=== PATIENT | male | born 1960 | race Caucasian/White ===

== ENCOUNTER → 2016-10-23 | Outpatient (CLI) | payer MEDICARE, OTHER ==
[~2016-10-23] MED LIST: ANASTROZOLE1 MG PO; ASPIRIN EC81 MG PO; CATAPRES 0.1MG0.1 MG PO; CHLORTHALIDONE25 MG PO; DULOXETINE HCL60 MG PO; GREEN TEA250 MG PO; INVOKANA300 MG PO; ISORDIL TAB 3030 MG PO; LANTUS100 UNIT/1 SC; LASIX20 MG PO; LEVOTHYROXINE100 MCG PO; LIPITOR TAB 2020 MG PO; LISINOPRIL10 MG PO; METOPROLOL SUC100 MG PO; NORVASC 5 MG TAB5 MG PO; NOVOLOG100 UNIT/1 SC; PIOGLITAZONE HC30 MG PO; PLAVIX 75 MG TA75 MG PO; PRADAXA150 MG PO; PRIMIDONE50 MG PO; RANITIDINE HCL150 M1 PO; SPIRONOLACTONE25 MG PO; TRANDATE 200 M200 MG PO; VITAMIN D50000 UNIT PO; ZYLOPRIM 100 M100 MG PO
[2016-10-23 13:06] LABS: HEMOGLOBIN 15.5 gm/dl (14.0-17.5); RED BLOOD COUNT 5.49 M/UL (4.20-5.50); WHITE BLOOD COUNT 7.4 K/UL (4.5-11.0)
[2016-10-23 13:32] LABS: BUN/CREATININE RATIO 10 (0-10)
== END ==
LOC: LAB 12:09
PROVIDERS: Internal Medicine Cardiovascular Disease
DX: Z01.810 Encounter for preprocedural cardiovascular examination (principal); I10 Essential (primary) hypertension; I48.91 Unspecified atrial fibrillation; R94.31 Abnormal electrocardiogram [ECG] [EKG]; Z88.8 Allergy status to other drugs, medicaments and biological substances
CPT/HCPCS: 36415; 80048; 85025; 85610; 85730; 93005

== ENCOUNTER 2016-10-24 06:12 | Outpatient (CLI) | payer MEDICARE, OTHER ==
[~2016-10-24] VITALS: Ht 175.3 cm; Wt 117.0 kg
[2016-10-24] MEDS ORDERED: ZYLOPRIM 100 M100 MG PO (07:44)
[2016-10-24] MEDS ORDERED: NORVASC 5 MG TAB5 MG PO (07:44)
[2016-10-24] MEDS ORDERED: ANASTROZOLE1 MG PO (07:46)
[2016-10-24] MEDS ORDERED: CHLORTHALIDONE25 MG PO (07:46)
[2016-10-24] MEDS ORDERED: LIPITOR TAB 2020 MG PO (07:46)
[2016-10-24] MEDS ORDERED: CATAPRES 0.1MG0.1 MG PO (07:47)
[2016-10-24] MEDS ORDERED: GREEN TEA250 MG PO (07:48)
[2016-10-24] MEDS ORDERED: DULOXETINE HCL60 MG PO (07:48)
[2016-10-24] MEDS ORDERED: INVOKANA300 MG PO (07:49)
[2016-10-24] MEDS ORDERED: ISORDIL TAB 3030 MG PO (07:49)
[2016-10-24] MEDS ORDERED: LEVOTHYROXINE100 MCG PO (07:50)
[2016-10-24] MEDS ORDERED: LANTUS100 UNIT/1 SC (07:50)
[2016-10-24] MEDS ORDERED: LISINOPRIL10 MG PO (07:51)
[2016-10-24] MEDS ORDERED: NOVOLOG100 UNIT/1 SC (07:52)
[2016-10-24] MEDS ORDERED: METOPROLOL SUC100 MG PO (07:52)
[2016-10-24] MEDS ORDERED: PIOGLITAZONE HC30 MG PO (07:53)
[2016-10-24] MEDS ORDERED: PRIMIDONE50 MG PO (07:54)
[2016-10-24] MEDS ORDERED: PRADAXA150 MG PO (07:54)
[2016-10-24] MEDS ORDERED: VITAMIN D50000 UNIT PO (07:55)
[2016-10-24] MEDS ORDERED: SPIRONOLACTONE25 MG PO (07:55)
[2016-10-24] MEDS ORDERED: RANITIDINE HCL150 M1 PO (07:55)
[2016-10-24 21:05] LABS: HEMOGLOBIN 15.9 gm/dl (14.0-17.5); RED BLOOD COUNT 5.6 M/UL (4.20-5.50); WHITE BLOOD COUNT 8.9 K/UL (4.5-11.0)
[2016-10-24 21:24] LABS: BUN/CREATININE RATIO 11 (0-10)
[2016-10-25 05:51] LABS: HEMOGLOBIN 15.7 gm/dl (14.0-17.5); RED BLOOD COUNT 5.55 M/UL (4.20-5.50); WHITE BLOOD COUNT 8.4 K/UL (4.5-11.0)
[2016-10-25 06:22] LABS: BUN/CREATININE RATIO 13 (0-10)
[2016-10-25] MEDS ORDERED: ASPIRIN EC81 MG PO (09:32)
[2016-10-25] MEDS ORDERED: PLAVIX 75 MG TA75 MG PO (09:34)
[2016-10-25] MEDS ORDERED: TRANDATE 200 M200 MG PO (10:20)
[2016-10-25] MEDS ORDERED: LASIX20 MG PO (10:21)
== END 2016-10-25 12:09 | disposition home or self-care (01) ==
LOC: CATH 06:12 → PROG CARE 13:20 → CATH 10-25 12:09
PROVIDERS: Internal Medicine
DX: I25.118 Atherosclerotic heart disease of native coronary artery with other forms of angina pectoris (principal); R94.39 Abnormal result of other cardiovascular function study; R94.31 Abnormal electrocardiogram [ECG] [EKG]; R07.9 Chest pain, unspecified; I13.0 Hypertensive heart and chronic kidney disease with heart failure and stage 1 through stage 4 chronic kidney disease, or unspecified chronic kidney disease; I50.32 Chronic diastolic (congestive) heart failure; N18.2 Chronic kidney disease, stage 2 (mild); E11.22 Type 2 diabetes mellitus with diabetic chronic kidney disease; E11.65 Type 2 diabetes mellitus with hyperglycemia; E78.5 Hyperlipidemia, unspecified; I73.9 Peripheral vascular disease, unspecified; E11.51 Type 2 diabetes mellitus with diabetic peripheral angiopathy without gangrene; E11.41 Type 2 diabetes mellitus with diabetic mononeuropathy; I25.2 Old myocardial infarction; E55.9 Vitamin D deficiency, unspecified; Z79.4 Long term (current) use of insulin; Z79.899 Other long term (current) drug therapy; Z86.718 Personal history of other venous thrombosis and embolism; Z79.02 Long term (current) use of antithrombotics/antiplatelets; Z88.8 Allergy status to other drugs, medicaments and biological substances; E29.1 Testicular hypofunction; E87.6 Hypokalemia; E03.9 Hypothyroidism, unspecified; M54.5 Low back pain; E78.2 Mixed hyperlipidemia; B35.3 Tinea pedis; R25.1 Tremor, unspecified; Z79.82 Long term (current) use of aspirin; M51.34 Other intervertebral disc degeneration, thoracic region; M51.36 Other intervertebral disc degeneration, lumbar region; E88.81 Metabolic syndrome and other insulin resistance; H68.109 Unspecified obstruction of Eustachian tube, unspecified ear; Z86.2 Personal history of diseases of the blood and blood-forming organs and certain disorders involving the immune mechanism; K58.9 Irritable bowel syndrome, unspecified; E66.9 Obesity, unspecified; Z68.38 Body mass index [BMI] 38.0-38.9, adult; M85.80 Other specified disorders of bone density and structure, unspecified site; J45.909 Unspecified asthma, uncomplicated; G89.29 Other chronic pain; F17.290 Nicotine dependence, other tobacco product, uncomplicated; K52.9 Noninfective gastroenteritis and colitis, unspecified; J01.20 Acute ethmoidal sinusitis, unspecified; K76.9 Liver disease, unspecified; J30.9 Allergic rhinitis, unspecified; I25.119 Atherosclerotic heart disease of native coronary artery with unspecified angina pectoris; M19.90 Unspecified osteoarthritis, unspecified site; G25.0 Essential tremor; D68.9 Coagulation defect, unspecified; M54.2 Cervicalgia; M50.90 Cervical disc disorder, unspecified, unspecified cervical region; K21.9 Gastro-esophageal reflux disease without esophagitis; M15.9 Polyosteoarthritis, unspecified; E04.0 Nontoxic diffuse goiter; M10.9 Gout, unspecified; E78.00 Pure hypercholesterolemia, unspecified; M79.1 Myalgia; G47.33 Obstructive sleep apnea (adult) (pediatric); G62.9 Polyneuropathy, unspecified; D68.59 Other primary thrombophilia; L40.9 Psoriasis, unspecified; M75.82 Other shoulder lesions, left shoulder; D75.1 Secondary polycythemia; B35.6 Tinea cruris
CPT/HCPCS: 36415; 80048; 82550; 82553; 82962; 85027; 85347; 93005; C1725; C1769; C1874; C1887; C1894; C9600; J0153; J0360; J0583; J1644; J2250; J3010; J7030; J7040; Q9963

== ENCOUNTER → 2020-10-17 | Outpatient (CLI) | payer MEDICARE, OTHER | LOC: HEART CORB 10:00 | DX: R01.1 Cardiac murmur, unspecified (principal); I34.0 Nonrheumatic mitral (valve) insufficiency; I10 Essential (primary) hypertension | CPT/HCPCS: 93306 ==